=== PATIENT | male | born 1965 | race Caucasian/White ===

== ENCOUNTER 2017-06-15 09:35 | Observation (INO) | payer OTHER ==
[2017-06-15 09:42] VITALS: BMI 33.9
[2017-06-15] MEDS ORDERED: ASPIRIN 325 MG TABLET PO ONE (09:53)
--- NOTE | 2017-06-15 09:58 | PDOC ---
History of Present Illness - History of Present Illness Initial Comments: 06/15/17 10:05 "The patient is a 51 year old male with past medical history of hypertension, diabetes, CAD s/p triple bypass who presents to the ED with complaints of shortness of breath, malaise, and chills that began today. The patient states he has felt under the weather for the past few days, but today he noticed a generalized weakness with associated numbness and tingling throughout his body. He also noticed hes been experiencing shortness of breath this morning that is worse with exertion, but pt denies any leg swelling or orthopnea. Pt endorses chronic chest pain since his CABG and denies any changes in this. The patient additionally states he has been having chills for the past day but denies fevers. He denies any headache, nausea, vomiting, diarrhea, cough, SOB. PCP: Dr. Kit Juan Senior Care Manager: Dr. Renzo Montejo <Amrik Cobb - Last Filed: 06/15/17 13:50> <Ayesha Grimaldo - Last Filed: 06/15/17 13:54> - General Chief Complaint: Chest Pain Stated Complaint: DIZZINESS, NAUSEA Time Seen by Provider: 06/15/17 09:46 Past History - Past Medical History Cardiac Disorders: Yes (TRIPLE BYPASS) COPD: No Diabetes: Yes HTN: Yes - Surgical History Cardiac Surgery: Yes (TRIPLE BYPASS) - Suicide/Smoking/Psychosocial Hx Smoking History: Never smoked <Amrik Cobb - Last Filed: 06/15/17 13:50> <Ayesha Grimaldo - Last Filed: 06/15/17 13:54> - Past Medical History Allergies/Adverse Reactions: Allergies Allergy/AdvReac Type Severity Reaction Status Date / Time No Known Allergies Allergy Verified 06/15/17 09:48 Home Medications: Ambulatory Orders Aspirin [ASA -] 81 mg PO DAILY 06/15/17 Atorvastatin Ca [Lipitor] 20 mg PO HS 06/15/17 Carvedilol 12.5 mg PO BID 06/15/17 Clonidine HCl 0.1 mg PO BID 06/15/17 Gabapentin 100 mg PO DAILY 06/15/17 Glyburide 2.5 mg PO DAILY 06/15/17 Irbesartan [Avapro] 150 mg PO DAILY 06/15/17 Metformin HCl [Glucophage] 1,000 mg PO BID 06/15/17 Nifedipine ER [Procardia Xl -] 60 mg PO DAILY 06/15/17 Spironolactone 25 mg PO BID 06/15/17 Review of Systems - Review of Systems Comments:: 06/15/17 10:24 "GENERAL/CONSTITUTIONAL: Present: chills No weakness. HEAD, EYES, EARS, NOSE AND THROAT: No change in vision. No ear pain or discharge. No sore throat. CARDIOVASCULAR: Present: chest pain, shortness of breath RESPIRATORY: No cough, wheezing, or hemoptysis. GASTROINTESTINAL: No nausea, vomiting, diarrhea or constipation. GENITOURINARY: No dysuria, frequency, or change in urination. MUSCULOSKELETAL: No joint or muscle swelling or pain. No neck or back pain. SKIN: No rash NEUROLOGIC: No headache, vertigo, loss of consciousness, or change in strength/ sensation. ENDOCRINE: No increased thirst. No abnormal weight change. HEMATOLOGIC/LYMPHATIC: No anemia, easy bleeding, or history of blood clots. ALLERGIC/IMMUNOLOGIC: No hives or skin allergy. " <Amrik Cobb - Last Filed: 06/15/17 13:50> *Physical Exam - Vital Signs Last Vital Signs Temp Pulse Resp BP Pulse Ox 98.5 F 108 H 19 196/102 97 06/15/17 09:36 06/15/17 09:36 06/15/17 09:36 06/15/17 09:36 06/15/17 09:36 - Physical Exam Comments: 06/15/17 09:58 "GENERAL: Awake, alert, and fully oriented, in no acute distress. HEAD: No signs of trauma EYES: PERRLA, EOMI, sclera anicteric, conjunctiva clear ENT: Auricles normal inspection, hearing grossly normal, nares patent, oropharynx clear without exudates. Moist mucosa NECK: Nontender, no stepoffs, Normal ROM, supple, no lymphadenopathy, JVD, or masses LUNGS: Breath sounds equal, clear to auscultation bilaterally. No wheezes, and no crackles HEART: Regular rate and rhythm, normal S1 and S2, no murmurs, rubs or gallops ABDOMEN: Soft, nontender, normoactive bowel sounds. No guarding, no rebound. No masses EXTREMITIES: Normal range of motion, no edema. No clubbing or cyanosis. No cords, erythema, or tenderness NEUROLOGICAL: Cranial nerves II through XII intact. 5/5 strength and sensation in all extremities, Normal speech, normal gait, normal cerebellar function SKIN: Warm, Dry, normal turgor, no rashes or lesions noted. " <RezaAmrik - Last Filed: 06/15/17 13:50> - Vital Signs Last Vital Signs Temp Pulse Resp BP Pulse Ox 98.8 F 99 H 18 140/91 100 06/15/17 10:16 06/15/17 11:38 06/15/17 11:38 06/15/17 11:38 06/15/17 11:38 <ReAyesha - Last Filed: 06/15/17 13:54> Heart Score/ECG Review - History History: Slightly suspicious - Electrocardiogram EKG: Non specific repolarization disturbance - Age Age: 45-65 - Risk Factors Risk Factors Heart Score: Yes Hx Hypercholesterolemia, Yes Hx Hypertension, Yes Hx Diabetes Based on the list above the patient has:: >/=3 risk factors or Hx atherosclerotic disease - Troponin Troponin: </= normal limit - Score Heart Score - Total: 4 - ECG Impressions Comment:: 06/15/17 09:55 NSR, no STEs, <1mm ST depression and TWIs in I and aVL, intervals wnl, rate 106 <RezaAmrik - Last Filed: 06/15/17 13:50> ED Treatment Course - LABORATORY CBC & Chemistry Diagram: 06/15/17 09:50 06/15/17 09:50 - RADIOLOGY Radiology Studies Ordered: Category Date Time Status CHEST X-RAY PORTABLE* [RAD] Stat Radiology 06/15/17 09:53 Ordered <RezaAmrik - Last Filed: 06/15/17 13:50> - LABORATORY CBC & Chemistry Diagram: 06/15/17 09:50 06/15/17 09:50 - ADDITIONAL ORDERS Additional order review: Laboratory Results 06/15/17 06/15/17 06/15/17 09:50 09:50 09:50 PT with INR 11.80 INR 1.04 PTT (Actin FS) 33.4 Sodium 135 L Potassium 4.6 Chloride 102 Carbon Dioxide 22 Anion Gap 11 BUN 23 H Creatinine 1.4 H Creat Clearance w eGFR 53.86 Random Glucose 280 H Calcium 9.3 Total Bilirubin 0.5 AST 16 ALT 23 Alkaline Phosphatase 113 Creatine Kinase 182 Creatine Kinase Index 1.7 CK-MB (CK-2) 3.220 Troponin I < 0.02 B-Natriuretic Peptide 93.11 Total Protein 8.2 Albumin 4.4 06/15/17 09:50 RBC 4.80 MCV 84.4 MCHC 34.1 RDW 13.2 MPV 8.2 Neutrophils % 78.6 Lymphocytes % 11.5 Monocytes % 8.0 Eosinophils % 1.4 Basophils % 0.5 - Medications Given in the ED: ED Medications Discontinued Medications Generic Name Dose Route Start Last Admin Trade Name Freq PRN Reason Stop Dose Admin Aspirin 325 mg 06/15/17 09:53 06/15/17 10:05 Asa - PO 06/15/17 09:54 325 mg ONCE ONE Administration Carvedilol 12.5 mg 06/15/17 10:44 06/15/17 10:51 Coreg - PO 06/15/17 10:45 12.5 mg ONCE ONE Administration Nitroglycerin 0.3 mg 06/15/17 10:07 06/15/17 10:28 Nitrostat - SL 0.3 mg Q5M PRN Administration FOR CHEST PAIN <ReAyesha - Last Filed: 06/15/17 13:54> Medical Decision Making - Medical Decision Making 06/15/17 09:56 51 M with significant cardiac history presenting to ED with chills, malaise, CP and SOB. Vitals notable for tachycardia and hypertension. Possible new onset CHF , though pt without obvious clinical signs of volume overload. Also consider acute [place] given ST depression in I and aVL. - Labs, trop, BNP, coags - CXR - Aspirin - Cards consult - Home dose carvedilol administered (did not take this AM) 06/15/17 11:45 first trop negative. BNP wnl CXR without pulmonary edema Pt reassessed - still continuing to have some chest discomfort Call placed to Dr. Montejo, awaiting callback. 06/15/17 13:50 Pt seen and evaluated by Dr. Mae, who agrees with plan to admit for serial troponins. Does not see any indication for transfer for interventional cards at this time. Pt admitted to Dr. Gates, tele obs. <Amrik Cobb - Last Filed: 06/15/17 13:50> - Medical Decision Making 06/15/17 11:51 Phone call placed to Dr. Montejo at his office. Awaiting call back 06/15/17 13:24 Phone call placed to Dr. Gates, admitting physician for Dr. Juan. Awaiting call back. 06/15/17 13:46 Phone call returned by Dr. Gates, case was discussed <Ayesha Grimaldo - Last Filed: 06/15/17 13:54> *DC/Admit/Observation/Transfer - Discharge Dispostion Admit: Yes - Attestations Physician Attestion: 06/15/17 13:53 I, Dr. mArik Cobb MD, attest that this document has been prepared under my direction and personally reviewed by me in its entirety. I further attest, that it accurately reflects all work, treatment, procedures and medical decision -making performed by me. <Amrik Cobb - Last Filed: 06/15/17 13:50> - Attestations Scribe Attestion: 06/15/17 12:49 Documentation prepared by Ayesha Grimaldo, acting as medical assisting instructor for Amrik Cobb MD. <Ayesha Grimaldo - Last Filed: 06/15/17 13:54> Diagnosis at time of Disposition: Chest pain - Referrals Referrals: Kit Juan [Primary Care Provider] -
[2017-06-15] MEDS ORDERED: ASPIRIN 325 MG TABLET ONE (10:04)
[2017-06-15] MEDS: NITROGLYCERIN SUBLINGUAL 1/200 0.3 MG BTL SL PRN ×3 (10:13→10:28)
[2017-06-15 10:25] LABS: BASO % 0.5 % (0-2.0); EOS % 1.4 % (0-4.5); HEMATOCRIT 40.5 % (35.4-49); HEMOGLOBIN 13.8 GM/dL (11.7-16.9); LYMPH % 11.5 % (8-40); MCH 28.8 pg (25.7-33.7); MCHC 34.1 g/dl (32.0-35.9); MEAN CELL VOLUME 84.4 fl (80-96); MEAN PLT VOLUME 8.2 fl (7.5-11.1); NEUT % 78.6 % (42.8-82.8); PLATELET COUNT 333 K/MM3 (134-434); RDW 13.2 % (11.9-15.9); WHITE BLOOD COUNT 11.6 K/mm3 (4.0-10.0)
[2017-06-15] MEDS ORDERED: CARVEDILOL 12.5 MG TABLET (FP) PO ONE (10:44)
[2017-06-15 10:45] LABS: ALBUMIN 4.4 g/dl (3.4-5.0); ANION GAP 11 (8-16); BLOOD UREA NITROGEN 23 mg/dL (7-18); CALCIUM 9.3 mg/dL (8.5-10.1); CHLORIDE 102 mmol/L (98-107); CO2 22 mmol/L (21-32); CREATININE 1.4 mg/dL (0.7-1.3); GLUCOSE,RANDOM 280 mg/dL (74-106); POTASSIUM 4.6 mmol/L (3.5-5.1); SGOT/AST 16 U/L (15-37); SGPT/ALT 23 U/L (12-78); SODIUM 135 mmol/L (136-145)
[2017-06-15] MEDS ORDERED: CARVEDILOL 12.5 MG TABLET (FP) ONE (10:46)
[2017-06-15 10:47] LABS: ALK PHOS 113 U/L (45-117); BILIRUBIN,TOTAL 0.5 mg/dL (0.2-1.0); TOT PROT 8.2 g/dl (6.4-8.2)
[2017-06-15 10:51] LABS: N-TERMINAL BNP 93.11 pg/ml (5-125)
[2017-06-15 11:07] LABS: INR 1.04 (0.82-1.09); PROTHROMBIN TIME (PATIENT) 11.8 SEC (9.98-11.88)
[2017-06-15 11:09] LABS: ACTIVATED PTT 33.4 SECONDS (26.9-34.4)
--- NOTE | 2017-06-15 15:04 | CON.CARD ---
Consult Consult Specialty:: Cardiology Referred by:: Amrik Cobb Reason for Consultation:: Chest pain - History of Present Illness Chief Complaint: Sob History of Present Illness: 51 year old male with a pmhx of htn, dm, CAD s/p CABG three years ago at [facility] followed by Dr. Montejo who presents with sob, malaise, and chills. Patient has been feeling under the weather last few days. Has been generally weak with some body aches. This morning was with his and he started to feel sob and dizzy so came to the ER. No pnd, orthopnea, or edema. No acute chest pain but chornic chest pain in left axilla reproducible with palpation. No fevers but some chills Hypertensive on presentation EKG: sinus tachy at 106bpm, abnormal T waves in I and aVL\ 1 set CE's negative Cr 1.4 - History Source History Provided By: Patient, Medical Record - Past Medical History Cardio/Vascular: Yes: CAD, HTN - Smoking History Smoking history: Never smoked Home Medications - Allergies Allergies/Adverse Reactions: Allergies Allergy/AdvReac Type Severity Reaction Status Date / Time No Known Allergies Allergy Verified 06/15/17 09:48 - Home Medications Home Medications: Ambulatory Orders Aspirin [ASA -] 81 mg PO DAILY 06/15/17 Atorvastatin Ca [Lipitor] 20 mg PO HS 06/15/17 Carvedilol 12.5 mg PO BID 06/15/17 Clonidine HCl 0.1 mg PO BID 06/15/17 Gabapentin 100 mg PO DAILY 06/15/17 Glyburide 2.5 mg PO DAILY 06/15/17 Irbesartan [Avapro] 150 mg PO DAILY 06/15/17 Metformin HCl [Glucophage] 1,000 mg PO BID 06/15/17 Nifedipine ER [Procardia Xl -] 60 mg PO DAILY 06/15/17 Spironolactone 25 mg PO BID 06/15/17 Vital Signs: Vital Signs Temperature 98.3 F 06/15/17 14:51 Pulse Rate 86 06/15/17 14:17 Respiratory Rate 18 06/15/17 14:17 Blood Pressure 140/85 06/15/17 14:17 O2 Sat by Pulse Oximetry (%) 100 06/15/17 14:17 Constitutional: Yes: No Distress Neck: Yes: Supple Respiratory: Yes: CTA Bilaterally Gastrointestinal: Yes: Normal Bowel Sounds, Soft Cardiovascular: Yes: Regular Rate and Rhythm JVD: No Carotid Bruit: No PMI: Non-Displaced Heart Sounds: Yes: S1, S2 Murmur: No: Systolic Murmur Edema: No - Other Data Labs, Other Data: CBC, BMP 06/15/17 09:50 06/15/17 09:50 INR, PTT INR 1.04 (0.82-1.09) 06/15/17 09:50 Troponin, BNP 06/15/17 09:50 Troponin I < 0.02 B-Natriuretic Peptide 93.11 Troponin, BNP 06/15/17 09:50 Troponin I < 0.02 B-Natriuretic Peptide 93.11 Imaging - Results Chest X-ray: Report Reviewed EKG: Image Reviewed Assessment/Plan 51 year old male with a pmhx of htn, dm, CAD s/p CABG three years ago at [facility] followed by Dr. Montejo who presents with sob, malaise, and chills. Patient has been feeling under the weather last few days. Has been generally weak with some body aches. This morning was with his and he started to feel sob and dizzy so came to the ER. No pnd, orthopnea, or edema. No acute chest pain but chornic chest pain in left axilla reproducible with palpation. No fevers but some chills Hypertensive on presentation EKG: sinus tachy at 106bpm, abnormal T waves in I and aVL 1 set CE's negative Cr 1.4 1) CAD -Patient with atypical complaints. Chest pain is atypical, chronic, and reproducible -Monitor 24 hrs on tele Attempt to get old ekg and recent echo done few weeks ago from Dr. Montejo's office -Restart aspirin/statin/beta rina and rest of bp meds and will adjust as needed for bp control -Trend CE's Gentle IV hydration
--- NOTE | 2017-06-15 16:49 | EKG ---
Test Reason : Blood Pressure : / mmHG Vent. Rate : 106 BPM Atrial Rate : 106 BPM P-R Int : 154 ms QRS Dur : 076 ms QT Int : 334 ms P-R-T Axes : 037 -06 104 degrees QTc Int : 443 ms SINUS TACHYCARDIA ANTERIOR INFARCT , AGE UNDETERMINED ABNORMAL ECG NO PREVIOUS ECGS AVAILABLE Confirmed by MD Benny, Simon ([id number]) on 06/15/2017 4:48:27 PM Referred By: Confirmed By:Simon Zapata MD
[2017-06-15] MEDS: SPIRONOLACTONE 25 MG TABLET (FP) PO SCH (21:52)
[2017-06-15] MEDS: CARVEDILOL 12.5 MG TABLET (FP) PO SCH (21:53)
[2017-06-15] MEDS: cloNIDine HCL 0.1 MG TABLET PO SCH (21:53)
[2017-06-15] MEDS ORDERED: ATORVASTATIN CA 20 MG TABLET (FP) PO SCH (22:00)
[2017-06-16 06:37] LABS: COCAINE, UR NEGATIVE ng/ml (CUTOFF=300); METHADONE, UR NEGATIVE ng/ml (CUTOFF=300); OPIATES, URI NEGATIVE ng/ml (CUTOFF=300); PHENCYCLIDINE,URINE NEGATIVE ng/ml (CUTOFF=25); URINE AMPHETAMINES NEGATIVE ng/ml (CUTOFF=500); URINE BARBITURATES NEGATIVE ng/ml (CUTOFF=200); URINE BENZODIAZEPINES NEGATIVE ng/ml (CUTOFF=200)
[2017-06-16] MEDS ORDERED: metFORMIN HCL 500 MG TABLET (FP) PO SCH (07:00)
[2017-06-16] MEDS ORDERED: glyBURIDE 2.5 MG TABLET (FP) PO SCH (07:00)
[2017-06-16 07:15] LABS: BASO % 0.5 % (0-2.0); EOS % 2.1 % (0-4.5); HEMOGLOBIN 12.4 GM/dL (11.7-16.9); LYMPH % 22.1 % (8-40); MCH 29.3 pg (25.7-33.7); MCHC 34.6 g/dl (32.0-35.9); MEAN CELL VOLUME 84.8 fl (80-96); MONO % 10.1 % (3.8-10.2); NEUT % 65.2 % (42.8-82.8); PLATELET COUNT 276 K/MM3 (134-434); RBC 4.25 M/mm3 (4.00-5.60); RDW 13.1 % (11.9-15.9); WHITE BLOOD COUNT 10.7 K/mm3 (4.0-10.0)
[2017-06-16 07:48] LABS: ALBUMIN 3.5 g/dl (3.4-5.0); ANION GAP 9 (8-16); BLOOD UREA NITROGEN 26 mg/dL (7-18); CALCIUM 7.9 mg/dL (8.5-10.1); CHLORIDE 102 mmol/L (98-107); CO2 24 mmol/L (21-32); GLUCOSE,RANDOM 172 mg/dL (74-106); POTASSIUM 4.4 mmol/L (3.5-5.1); SODIUM 135 mmol/L (136-145)
[2017-06-16 07:50] LABS: CHOLESTEROL 143 mg/dL (50-200); LDL CHOLESTEROL (ONLY SJRH) 87 mg/dL (5-100); TRIGLYCERIDES 239 mg/dL (35-160)
[2017-06-16 07:51] LABS: HDL CHOLESTEROL 32 mg/dL (40-60)
[2017-06-16 07:54] LABS: ALK PHOS 88 U/L (45-117); BILIRUBIN,TOTAL 0.4 mg/dL (0.2-1.0); CREATININE 1.4 mg/dL (0.7-1.3); SGOT/AST 11 U/L (15-37); SGPT/ALT 21 U/L (12-78); TOT PROT 6.8 g/dl (6.4-8.2)
[2017-06-16 08:06] VITALS: BP 158/87; PULSE 79; TEMP 98
[2017-06-16] MEDS: cloNIDine HCL 0.1 MG TABLET PO SCH (09:35)
[2017-06-16] MEDS: SPIRONOLACTONE 25 MG TABLET (FP) PO SCH (09:36)
[2017-06-16] MEDS: CARVEDILOL 12.5 MG TABLET (FP) PO SCH (09:36)
[2017-06-16] MEDS ORDERED: GABAPENTIN 100 MG CAPSULE (FP) PO SCH (10:00)
[2017-06-16] MEDS ORDERED: LOSARTAN POTASSIUM 50 MG TABLET (FP) PO SCH (10:00)
[2017-06-16] MEDS ORDERED: ASPIRIN 81 MG CHEWABLE TABLETS PO SCH (10:00)
[2017-06-16] MEDS ORDERED: NIFEdipine E.R 60 MG TABLET (UD) PO SCH (10:00)
--- NOTE | 2017-06-16 11:44 | EKG ---
Test Reason : Blood Pressure : / mmHG Vent. Rate : 073 BPM Atrial Rate : 073 BPM P-R Int : 170 ms QRS Dur : 078 ms QT Int : 404 ms P-R-T Axes : 036 028 113 degrees QTc Int : 445 ms NORMAL SINUS RHYTHM ABNORMAL QRS-T ANGLE, CONSIDER PRIMARY T WAVE ABNORMALITY ABNORMAL ECG WHEN COMPARED WITH ECG OF 15-JUN-2017 09:44, NO SIGNIFICANT CHANGE WAS FOUND Confirmed by CHASTITY DWYER, SVITLANA ([id number]) on 06/16/2017 11:43:42 AM Referred By: DANE HAUSER DR Confirmed By:SVITLANA HAYWOOD MD
--- NOTE | 2017-06-16 12:50 | HP ---
Admitting History and Physical - Admission Chief Complaint: chest pain / SOB History of Present Illness: "The patient is a 51 year old male with past medical history of hypertension, diabetes, CAD s/p triple bypass who presents to the ED with complaints of shortness of breath, malaise, and chills that began today. The patient states he has felt under the weather for the past few days, but today he noticed a generalized weakness with associated numbness and tingling throughout his body. He also noticed hes been experiencing shortness of breath this morning that is worse with exertion, but pt denies any leg swelling or orthopnea. Pt endorses chronic chest pain since his CABG and denies any changes in this. The patient additionally states he has been having chills for the past day but denies fevers. He denies any headache, nausea, vomiting, diarrhea, cough, SOB. Patient reports chest pain localized mid left parasternal /reproducible with pressure to site / non radiating / no associated symptoms reports pain "got worse " when he started coughing. It "has never gone away -- he has been told and is aware this is related to surgical procedure - CABG -- probably sternotomy wires. PCP: Dr. Kit Juan Welding Process Specialist: Dr. Stevenson History Source: Patient, Medical Record Limitations to Obtaining History: No Limitations - Past Medical History Cardiovascular: Yes: CAD, HTN, Other (CABG) - Past Surgical History Past Surgical History: Yes: CABG (3 yrs ago @ [facility]) - Smoking History Smoking history: Never smoked - Alcohol/Substance Use Hx Alcohol Use: Yes History of Substance Use: reports: None - Social History Usual Living Arrangement: Yes: With Spouse History of Recent Travel: No Home Medications - Allergies Allergies/Adverse Reactions: Allergies Allergy/AdvReac Type Severity Reaction Status Date / Time No Known Allergies Allergy Verified 06/15/17 09:48 - Home Medications Home Medications: Ambulatory Orders Aspirin [ASA -] 81 mg PO DAILY 06/15/17 Atorvastatin Ca [Lipitor] 20 mg PO HS 06/15/17 Carvedilol 12.5 mg PO BID 06/15/17 Clonidine HCl 0.1 mg PO BID 06/15/17 Gabapentin 100 mg PO DAILY 06/15/17 Glyburide 2.5 mg PO DAILY 06/15/17 Irbesartan [Avapro] 150 mg PO DAILY 06/15/17 Metformin HCl [Glucophage] 1,000 mg PO BID 06/15/17 Nifedipine ER [Procardia Xl -] 60 mg PO DAILY 06/15/17 Spironolactone 25 mg PO BID 06/15/17 Review of Systems - Review of Systems Constitutional: reports: No Symptoms. denies: Fever, Lethargy, Night Sweats Eyes: reports: No Symptoms HENT: reports: No Symptoms Neck: reports: No Symptoms Cardiovascular: reports: Chest Pain (localized / constant / reproducible), Shortness of Breath (associated with increased activity). denies: Edema, Palpitations Respiratory: reports: Cough (dry persistent). denies: Hemoptysis, Orthopnea, Wheezing Gastrointestinal: reports: No Symptoms Genitourinary: reports: No Symptoms Musculoskeletal: reports: No Symptoms Integumentary: reports: No Symptoms Endocrine: reports: No Symptoms Hematology/Lymphatic: reports: No Symptoms Psychiatric: reports: No Symptoms Physical Examination Vital Signs: Vital Signs Temperature 98 F 06/16/17 08:05 Pulse Rate 79 06/16/17 08:05 Respiratory Rate 16 06/16/17 08:05 Blood Pressure 158/87 06/16/17 08:05 O2 Sat by Pulse Oximetry (%) 100 06/16/17 08:00 Constitutional: Yes: Well Nourished, No Distress, Calm, Obese Eyes: Yes: WNL HENT: Yes: WNL Neck: Yes: WNL Cardiovascular: Yes: Regular Rate and Rhythm Respiratory: Yes: Regular, CTA Bilaterally. No: Rales, Rhonchi, Wheezes Gastrointestinal: Yes: Normal Bowel Sounds, Soft, Abdomen, Obese ...Rectal Exam: Yes: Deferred Renal/: Yes: WNL Breast(s): Yes: WNL Musculoskeletal: Yes: WNL Extremities: Yes: WNL Edema: No Peripheral Pulses WNL: Yes Integumentary: Yes: WNL Neurological: Yes: Alert, Oriented ...Motor Strength: WNL Psychiatric: Yes: Alert, Oriented Labs: CBC, BMP 06/16/17 06:16 06/16/17 06:16 Problem List - Problems (1) Atypical angina Code(s): I20.8 - OTHER FORMS OF ANGINA PECTORIS (2) HTN (hypertension), malignant Code(s): I10 - ESSENTIAL (PRIMARY) HYPERTENSION (3) Diabetes mellitus Code(s): E11.9 - TYPE 2 DIABETES MELLITUS WITHOUT COMPLICATIONS (4) CAD of autologous artery bypass graft without angina Code(s): I25.810 - ATHEROSCLEROSIS OF CABG W/O ANGINA PECTORIS
--- NOTE | 2017-06-16 13:14 | PN ---
Progress Note, Physician Chief Complaint: Dizziness and chest discomfort History of Present Illness: The patient is a 51-year-old man, we have a history of coronary artery disease, status post CABG in 2015, hypertension, hyperlipidemia, who presenting with URI symptoms, myalgias, and atypical chest pains. The patient has chronic chest pains (musculoskeletal) since his CABG. He is currently comfortable and symptom free. - Current Medication List Current Medications: Active Medications Aspirin (Asa -) 81 mg PO DAILY [facility] Last Admin: 06/16/17 09:36 Dose: 81 mg Atorvastatin Calcium (Lipitor -) 20 mg PO HS [facility] Last Admin: 06/15/17 21:53 Dose: 20 mg Carvedilol (Coreg -) 12.5 mg PO BID [facility] Last Admin: 06/16/17 09:36 Dose: 12.5 mg Clonidine (Catapres -) 0.1 mg PO BID [facility] Last Admin: 06/16/17 09:35 Dose: 0.1 mg Gabapentin (Neurontin -) 100 mg PO DAILY [facility] Last Admin: 06/16/17 09:35 Dose: 100 mg Glyburide (Diabeta -) 2.5 mg PO 0700 [facility] Last Admin: 06/16/17 06:12 Dose: 2.5 mg Losartan Potassium (Cozaar -) 50 mg PO DAILY [facility] Last Admin: 06/16/17 09:35 Dose: 50 mg Metformin HCl (Glucophage -) 1,000 mg PO BID@0700,1630 [facility] Last Admin: 06/16/17 06:12 Dose: 1,000 mg Nifedipine (Procardia Xl -) 60 mg PO DAILY [facility] Last Admin: 06/16/17 09:35 Dose: 60 mg Spironolactone (Aldactone -) 25 mg PO BID [facility] Last Admin: 06/16/17 09:36 Dose: 25 mg - Objective Vital Signs: Vital Signs Temperature 98 F 06/16/17 08:05 Pulse Rate 79 06/16/17 08:05 Respiratory Rate 16 06/16/17 08:05 Blood Pressure 158/87 06/16/17 08:05 O2 Sat by Pulse Oximetry (%) 100 06/16/17 08:00 Constitutional: Yes: No Distress, Calm, Obese Eyes: Yes: WNL, Conjunctiva Clear, EOM Intact HENT: Yes: Atraumatic, Normocephalic Neck: Yes: WNL, Supple, Trachea Midline Cardiovascular: Yes: WNL, Regular Rate and Rhythm, S1, S2 Respiratory: Yes: WNL, Regular, CTA Bilaterally Gastrointestinal: Yes: WNL, Normal Bowel Sounds, Soft ...Rectal Exam: Yes: Deferred Genitourinary: Yes: WNL Musculoskeletal: Yes: Muscle Pain Extremities: Yes: WNL Edema: No Peripheral Pulses: Left Radial: 2+, Right Radial: 2+, Left Doralis Pedis: 2+, Right Dorsalis Pedis: 2+, Left Femoral: 2+, Right Femoral: 2+ Integumentary: Yes: WNL Neurological: Yes: WNL, Alert, Oriented Labs: CBC, BMP 06/16/17 06:16 06/16/17 06:16 INR, PTT INR 1.04 (0.82-1.09) 06/15/17 09:50 Assessment/Plan The patient is stable from the cardiac standpoint. There is no evidence of ischemia nor acute coronary syndrome. Musculoskeletal chest discomfort in the setting of coughing. Symptoms are chronic. Next There is no need for further cardiac workup at this point. The patient is in sinus rhythm. No important events noted on telemetry. Please continue current regimen. May stop telemetry. Please do not hesitate to call us PRN.
--- NOTE | 2017-06-16 13:19 | PN ---
Progress Note (short form) - Note Progress Note: Patietn seen and examined in room reports feeling better however chest pain unchanged discussed findings with patient he reports "only thing bothering him is the cough " Vital Signs Period Temp Pulse Resp BP Sys/Kumar Pulse Ox Last 24 Hr 98 F-99.1 F 77-106 14-18 140-178/71-98 97-100 neck supple sternotomy scar / chest pain reproducible L parasternal border heart S1/S2 Lungs clear bilat abd soft obese Ext osmani edema CBCD WBC 10.7 K/mm3 (4.0-10.0) H 06/16/17 06:16 RBC 4.25 M/mm3 (4.00-5.60) 06/16/17 06:16 Hgb 12.4 GM/dL (11.7-16.9) D 06/16/17 06:16 Hct 36.0 % (35.4-49) 06/16/17 06:16 MCV 84.8 fl (80-96) 06/16/17 06:16 MCHC 34.6 g/dl (32.0-35.9) 06/16/17 06:16 RDW 13.1 % (11.9-15.9) 06/16/17 06:16 Plt Count 276 K/MM3 (134-434) 06/16/17 06:16 MPV 8.0 fl (7.5-11.1) 06/16/17 06:16 CMP Sodium 135 mmol/L (136-145) L 06/16/17 06:16 Potassium 4.4 mmol/L (3.5-5.1) 06/16/17 06:16 Chloride 102 mmol/L (98-107) 06/16/17 06:16 Carbon Dioxide 24 mmol/L (21-32) 06/16/17 06:16 Anion Gap 9 (8-16) 06/16/17 06:16 BUN 26 mg/dL (7-18) H 06/16/17 06:16 Creatinine 1.4 mg/dL (0.7-1.3) H 06/16/17 06:16 Creat Clearance w eGFR 53.86 (>60) 06/16/17 06:16 Random Glucose 172 mg/dL (74-106) H D 06/16/17 06:16 Calcium 7.9 mg/dL (8.5-10.1) L 06/16/17 06:16 Total Bilirubin 0.4 mg/dL (0.2-1.0) 06/16/17 06:16 AST 11 U/L (15-37) L D 06/16/17 06:16 ALT 21 U/L (12-78) 06/16/17 06:16 Alkaline Phosphatase 88 U/L (45-117) D 06/16/17 06:16 Total Protein 6.8 g/dl (6.4-8.2) 06/16/17 06:16 Albumin 3.5 g/dl (3.4-5.0) D 06/16/17 06:16 CARDIAC ENZYMES Creatine Kinase 114 IU/L (39-308) 06/16/17 06:16 Troponin I < 0.02 ng/ml (0.00-0.05) 06/16/17 06:16 TROPONIN I < 0.02 X 3 Active Medications Aspirin (Asa -) 81 mg PO DAILY [facility] Last Admin: 06/16/17 09:36 Dose: 81 mg Atorvastatin Calcium (Lipitor -) 20 mg PO HS [facility] Last Admin: 06/15/17 21:53 Dose: 20 mg Carvedilol (Coreg -) 12.5 mg PO BID [facility] Last Admin: 06/16/17 09:36 Dose: 12.5 mg Clonidine (Catapres -) 0.1 mg PO BID [facility] Last Admin: 06/16/17 09:35 Dose: 0.1 mg Gabapentin (Neurontin -) 100 mg PO DAILY [facility] Last Admin: 06/16/17 09:35 Dose: 100 mg Glyburide (Diabeta -) 2.5 mg PO 0700 [facility] Last Admin: 06/16/17 06:12 Dose: 2.5 mg Losartan Potassium (Cozaar -) 50 mg PO DAILY [facility] Last Admin: 06/16/17 09:35 Dose: 50 mg Metformin HCl (Glucophage -) 1,000 mg PO BID@0700,1630 [facility] Last Admin: 06/16/17 06:12 Dose: 1,000 mg Nifedipine (Procardia Xl -) 60 mg PO DAILY [facility] Last Admin: 06/16/17 09:35 Dose: 60 mg Spironolactone (Aldactone -) 25 mg PO BID [facility] Last Admin: 04/18/18 09:36 Dose: 25 mg atypical chest pain localized at surgical site reproducible no evidence of cardiac event Plans D/C home will follow up with Dr Stevenson and at office this week Instructed to continue all meds / low salt diet / recommend weight loss Problem List - Problems (1) Atypical angina Code(s): I20.8 - OTHER FORMS OF ANGINA PECTORIS (2) HTN (hypertension), malignant Code(s): I10 - ESSENTIAL (PRIMARY) HYPERTENSION (3) Diabetes mellitus Code(s): E11.9 - TYPE 2 DIABETES MELLITUS WITHOUT COMPLICATIONS (4) CAD of autologous artery bypass graft without angina Code(s): I25.810 - ATHEROSCLEROSIS OF CABG W/O ANGINA PECTORIS
--- NOTE | 2017-06-16 13:23 | DS ---
Physical Examination Vital Signs: Vital Signs Temperature 98 F 06/16/17 08:05 Pulse Rate 79 06/16/17 08:05 Respiratory Rate 16 06/16/17 08:05 Blood Pressure 158/87 06/16/17 08:05 O2 Sat by Pulse Oximetry (%) 100 06/16/17 08:00 Findings/Remarks: "The patient is a 51 year old male with past medical history of hypertension, diabetes, CAD s/p triple bypass who presents to the ED with complaints of shortness of breath, malaise, and chills that began today. The patient states he has felt under the weather for the past few days, but today he noticed a generalized weakness with associated numbness and tingling throughout his body. He also noticed hes been experiencing shortness of breath this morning that is worse with exertion, but pt denies any leg swelling or orthopnea. Pt endorses chronic chest pain since his CABG and denies any changes in this. The patient additionally states he has been having chills for the past day but denies fevers. He denies any headache, nausea, vomiting, diarrhea, cough, SOB. Patient reports chest pain localized mid left parasternal /reproducible with pressure to site / non radiating / no associated symptoms reports pain "got worse " when he started coughing. It "has never gone away -- he has been told and is aware this is related to surgical procedure - CABG -- probably sternotomy wires. No EKG changes / telemetry no arrythmia / sinus rhythm / TNI X3 <0.02 / Cardiac eval during hospital stay atypical chest pain localized at surgical site reproducible no evidence of cardiac event Plans D/C home will follow up with Dr Stevenson and at office this week Instructed to continue all meds / low salt diet / recommend weight loss Constitutional: Yes: Well Nourished, No Distress, Calm, Obese Eyes: Yes: Conjunctiva Clear, EOM Intact HENT: Yes: WNL, Atraumatic, Normocephalic Neck: Yes: WNL, Supple, Trachea Midline Cardiovascular: Yes: WNL, Regular Rate and Rhythm Respiratory: Yes: WNL, Regular, CTA Bilaterally Gastrointestinal: Yes: WNL, Normal Bowel Sounds, Soft, Abdomen, Obese ...Rectal Exam: Yes: WNL Renal/: Yes: WNL Breast(s): Yes: WNL Musculoskeletal: Yes: WNL Extremities: Yes: WNL Edema: No Peripheral Pulses WNL: Yes Integumentary: Yes: WNL Neurological: Yes: WNL ...Motor Strength: WNL Psychiatric: Yes: WNL, Alert, Oriented Labs: CBC, BMP 06/16/17 06:16 06/16/17 06:16 Discharge Summary Reason For Visit: CHEST PAIN Current Active Problems Atypical angina (Acute) CAD of autologous artery bypass graft without angina (Acute) Chest pain (Acute) Diabetes mellitus (Acute) HTN (hypertension), malignant (Acute) Condition: Stable - Instructions Referrals: Kit Juan [Primary Care Provider] - Disposition: HOME - Home Medications Comprehensive Discharge Medication List: Ambulatory Orders Aspirin [ASA -] 81 mg PO DAILY 06/15/17 Atorvastatin Ca [Lipitor] 20 mg PO HS 06/15/17 Carvedilol 12.5 mg PO BID 06/15/17 Clonidine HCl 0.1 mg PO BID 06/15/17 Gabapentin 100 mg PO DAILY 06/15/17 Glyburide 2.5 mg PO DAILY 06/15/17 Irbesartan [Avapro] 150 mg PO DAILY 06/15/17 Metformin HCl [Glucophage] 1,000 mg PO BID 06/15/17 Nifedipine ER [Procardia XL -] 60 mg PO DAILY 06/15/17 Spironolactone 25 mg PO BID 06/15/17 Nitroglycerin Sublingual [Nitrostat -] 0.3 mg SL Q5M PRN btl 06/16/17
== END 2017-06-16 15:44 | disposition home or self-care (01) ==
LOC: JER 09:35 → JERBED 13:50 → J4W 15:34
PROVIDERS: ADMIT Family Medicine; ATTEND Family Medicine
DX: R07.89 Other chest pain (principal); I10 Essential (primary) hypertension; I25.798 Atherosclerosis of other coronary artery bypass graft(s) with other forms of angina pectoris; E11.9 Type 2 diabetes mellitus without complications; Z95.1 Presence of aortocoronary bypass graft; Z79.82 Long term (current) use of aspirin; Z79.84 Long term (current) use of oral hypoglycemic drugs; R00.0 Tachycardia, unspecified
CPT/HCPCS: 36415; 71045-TC-FY; 71046-TC-FY; 80053; 80061; 80307; 82550; 82553; 82962; 83721; 83880; 84484; 85025; 85610; 85730; 93005; 93010; 99285-25; G0378; J0735

== ENCOUNTER 2017-12-30 13:27 | Emergency (ER) | payer OTHER ==
--- NOTE | 2017-12-30 13:38 | PDOC ---
History of Present Illness - General Stated Complaint: ANXIETY - History of Present Illness Initial Comments: The patient is a 52M w/ a history of HTN, T2DM, CAD s/p CABG x3 who presents for evaluation of anxiety s/p being evicted from his house today with his and kids. The patient reports feeling shaky with some mild increased substernal chest pain that is reproducible and not new for him. He denies SI or HI. He reports that he will be able to move in with his parents for a short amount of time. PCP: Dr. Juan Cardiology: Dr. Ham 12/30/17 13:36 Past History - Past Medical History Allergies/Adverse Reactions: Allergies Allergy/AdvReac Type Severity Reaction Status Date / Time No Known Allergies Allergy Verified 12/30/17 13:50 Home Medications: Ambulatory Orders Aspirin [ASA -] 81 mg PO DAILY 06/15/17 Atorvastatin Ca [Lipitor] 20 mg PO HS 06/15/17 Carvedilol 12.5 mg PO BID 06/15/17 Clonidine HCl 0.1 mg PO BID 06/15/17 Gabapentin 100 mg PO DAILY 06/15/17 Glyburide 2.5 mg PO DAILY 06/15/17 Irbesartan [Avapro] 150 mg PO DAILY 06/15/17 Metformin HCl [Glucophage] 1,000 mg PO BID 06/15/17 Nifedipine ER [Procardia XL -] 60 mg PO DAILY 06/15/17 Spironolactone 25 mg PO BID 06/15/17 Nitroglycerin Sublingual [Nitrostat -] 0.3 mg SL Q5M PRN btl 06/16/17 Cardiac Disorders: Yes (TRIPLE BYPASS) COPD: No Diabetes: Yes HTN: Yes Hypercholesterolemia: Yes - Surgical History Cardiac Surgery: Yes (TRIPLE BYPASS) - Suicide/Smoking/Psychosocial Hx Smoking History: Never smoked Hx Alcohol Use: Yes Review of Systems - Review of Systems Able to Perform ROS?: Yes Comments:: GENERAL/CONSTITUTIONAL: No fever or chills. No weakness HEAD, EYES, EARS, NOSE AND THROAT: No change in vision. No ear pain or discharge. No sore throat CARDIOVASCULAR: No shortness of breath RESPIRATORY: No cough, wheezing, or hemoptysis GASTROINTESTINAL: No nausea, vomiting, diarrhea or constipation GENITOURINARY: No dysuria, frequency, or change in urination MUSCULOSKELETAL: No joint or muscle swelling or pain. No neck or back pain SKIN: No rash NEUROLOGIC: No headache, vertigo, loss of consciousness, or change in strength/ sensation ENDOCRINE: No increased thirst. No abnormal weight change HEMATOLOGIC/LYMPHATIC: No anemia, easy bleeding, or history of blood clots ALLERGIC/IMMUNOLOGIC: No hives or skin allergy 12/30/17 14:16 Is the patient limited Tajik proficient: No *Physical Exam - Vital Signs Vital Signs Temp Pulse Resp BP Pulse Ox 98.3 F 100 H 18 163/97 97 12/30/17 13:34 12/30/17 13:34 12/30/17 13:34 12/30/17 13:34 12/30/17 13:34 12/30/17 14:17 - Physical Exam Comments: GENERAL: Awake, alert, and fully oriented, in no acute distress HEAD: No signs of trauma, normocephalic, atraumatic EYES: PERRLA, EOMI, sclera anicteric, conjunctiva clear ENT: Hearing grossly normal, nares patent, oropharynx clear without exudates. Moist mucosa LUNGS: No distress, speaks full sentences, clear to auscultation bilaterally HEART: Tachycardia with regular rhythm, normal S1 and S2, no murmurs, rubs or gallops, peripheral pulses normal and equal bilaterally ABDOMEN: Soft, nontender, normoactive bowel sounds. No guarding, no rebound. No masses EXTREMITIES : Normal inspection, Normal range of motion, no edema. No clubbing or cyanosis NEUROLOGICAL: Cranial nerves II through XII grossly intact. Normal speech, normal gait, no focal sensorimotor deficits SKIN: Warm, Dry, normal turgor, no rashes or lesions noted 12/30/17 14:17 ED Treatment Course - LABORATORY CBC & Chemistry Diagram: 12/30/17 14:10 12/30/17 14:10 Medical Decision Making - Medical Decision Making The patient is a 52M with a history of HTN, CAD s/p CABG x3, who presents for evaluation of anxiety and exacerbation of chronic chest pain s/p eviction today CMP, CBC, Cardiac profile Xanax 0.25 PO once for anxiety Patient w/o current SI or HI Patient plans to stay w/ parents for next month 12/30/17 14:18 Laboratory Tests 12/30/17 14:10 WBC 12.9 H Hgb 14.6 mild leukocytosis, near baseline, afebrile No anemia 12/30/17 15:07 CMP Sodium 136 mmol/L (136-145) 12/30/17 14:10 Potassium 4.4 mmol/L (3.5-5.1) 12/30/17 14:10 Chloride 102 mmol/L (98-107) 12/30/17 14:10 Carbon Dioxide 23 mmol/L (21-32) 12/30/17 14:10 Anion Gap 11 MMOL/L (8-16) 12/30/17 14:10 BUN 22 mg/dL (7-18) H 12/30/17 14:10 Creatinine 1.5 mg/dL (0.55-1.3) H 12/30/17 14:10 Creat Clearance w eGFR 49.54 (>60) 12/30/17 14:10 Random Glucose 193 mg/dL (74-106) H 12/30/17 14:10 Calcium 9.0 mg/dL (8.5-10.1) 12/30/17 14:10 Total Bilirubin 0.5 mg/dL (0.2-1) 12/30/17 14:10 AST 27 U/L (15-37) 12/30/17 14:10 ALT 24 U/L (13-61) 12/30/17 14:10 Alkaline Phosphatase 122 U/L (45-117) H 12/30/17 14:10 Creatine Kinase 262 IU/L (26-308) 12/30/17 14:10 Creatine Kinase Index 1.7 % (0.0-5.0) 12/30/17 14:10 CK-MB (CK-2) 4.5 ng/mL (0.5-3.6) H 12/30/17 14:10 Troponin I < 0.02 ng/ml (0.00-0.05) 12/30/17 14:10 Total Protein 8.2 g/dl (6.4-8.2) 12/30/17 14:10 Albumin 4.1 g/dl (3.4-5.0) 12/30/17 14:10 lytes wnl Trop I neg Plan for D/C w/ PCP f/u Plan discussed w/ patient who is in agreement and verbalized understanding Dispo: Home 12/30/17 16:29 *DC/Admit/Observation/Transfer Diagnosis at time of Disposition: Anxiety - Discharge Dispostion Condition at time of disposition: Stable Decision to Admit order: No - Referrals Referrals: Kit Juan [Primary Care Provider] - Olman Ham MD [Staff Physician] - - Patient Instructions Printed Discharge Instructions: DI for Anxiety -- Adult Additional Instructions: You were seen in the Emergency Room today for evaluation of anxiety. Please review the handout provided at discharge. Please follow up with your primary care provider within the next 1-3 days. Return to the Emergency Room if you develop worsening symptoms, chest pain, shortness of breath, headache, changes in vision, or any new/concerning symptoms - Post Discharge Activity
[2017-12-30 13:50] VITALS: BMI 33.9
[2017-12-30] MEDS ORDERED: ALPRAZolam 0.25 MG TABLET PO ONE (13:56)
[2017-12-30] MEDS ORDERED: ALPRAZolam 0.25 MG TABLET ONE (14:29)
--- NOTE | 2017-12-30 14:44 | EKG ---
Test Reason : Blood Pressure : / mmHG Vent. Rate : 105 BPM Atrial Rate : 105 BPM P-R Int : 154 ms QRS Dur : 076 ms QT Int : 344 ms P-R-T Axes : 043 015 090 degrees QTc Int : 454 ms SINUS TACHYCARDIA WITH OCCASIONAL PREMATURE VENTRICULAR COMPLEXES POSSIBLE LEFT ATRIAL ENLARGEMENT ANTERIOR INFARCT , AGE UNDETERMINED ABNORMAL ECG WHEN COMPARED WITH ECG OF 16-JUN-2017 09:32, PREMATURE VENTRICULAR COMPLEXES ARE NOW PRESENT Confirmed by JOSÉ LUIS DWYER, PUNEET ([id number]) on 12/30/2017 2:43:50 PM Referred By: Confirmed By:PUNEET ORDONEZ MD
[2017-12-30 14:46] LABS: BASO % 0.3 % (0-2.0); EOS % 0.2 % (0-4.5); HEMATOCRIT 44.6 % (35.4-49); HEMOGLOBIN 14.6 GM/dL (11.7-16.9); MCH 27.3 pg (25.7-33.7); MCHC 32.7 g/dl (32.0-35.9); MEAN CELL VOLUME 83.5 fl (80-96); MEAN PLT VOLUME 8.2 fl (7.5-11.1); MONO % 6.6 % (3.8-10.2); NEUT % 84.9 % (42.8-82.8); PLATELET COUNT 312 K/MM3 (134-434); RBC 5.34 M/mm3 (4.00-5.60); RDW 13.6 % (11.9-15.9); WHITE BLOOD COUNT 12.9 K/mm3 (4.0-10.0)
--- NOTE | 2017-12-30 15:17 | PDOC ---
Attending Attestation - Resident Resident Name: Xavier Ford - ED Attending Attestation I have performed the following: I have examined & evaluated the patient, The case was reviewed & discussed with the resident, I agree w/resident's findings & plan, Exceptions are as noted - HPI HPI: 12/30/17 15:17 Mr Sanchez is 52 M w/ a history of HTN, NIDDM, CAD s/p CABG x3 who presents for evaluation of anxiety s/p being evicted from his home today. 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 No SI, No HI - Physicial Exam PE: 12/30/17 15:45 GENERAL: Pt is tearful, a&o x3 LUNGS: Clear to auscultation bilaterally, no wheezes, rales or rhonchi. HEART: Regular rate and rhythm without murmurs, rubs or gallops. ABDOMEN: Normoactive bowel sounds, soft, nontender, no masses, no rebound, no guarding. NEUROLOGICAL: Normal motor function, normal sensation. - Medical Decision Making 12/30/17 15:46 Laboratory Tests 12/30/17 12/30/17 14:10 14:10 WBC 12.9 H Hgb 14.6 Hct 44.6 D Plt Count 312 BUN 22 H Creatinine 1.5 H Creatine Kinase 262 Troponin I < 0.02 EKG: Sinus rhythm, tachycardiac rate of 105bpm, axis nml, no st elevation or depressions, t waves upright
[2017-12-30 15:36] LABS: ALBUMIN 4.1 g/dl (3.4-5.0); ALK PHOS 122 U/L (45-117); ANION GAP 11 MMOL/L (8-16); BILIRUBIN,TOTAL 0.5 mg/dL (0.2-1); BLOOD UREA NITROGEN 22 mg/dL (7-18); CHLORIDE 102 mmol/L (98-107); CO2 23 mmol/L (21-32); CREATININE 1.5 mg/dL (0.55-1.3); GLUCOSE,RANDOM 193 mg/dL (74-106); POTASSIUM 4.4 mmol/L (3.5-5.1); SGOT/AST 27 U/L (15-37); SGPT/ALT 24 U/L (13-61); SODIUM 136 mmol/L (136-145); TOT PROT 8.2 g/dl (6.4-8.2)
[2017-12-30 15:50] VITALS: BP 152/78; PULSE 85; TEMP 98.2
== END 2017-12-30 15:56 | disposition home or self-care (01) ==
LOC: JER 13:27
DX: F41.9 Anxiety disorder, unspecified (principal); I25.10 Atherosclerotic heart disease of native coronary artery without angina pectoris; I10 Essential (primary) hypertension; Z95.1 Presence of aortocoronary bypass graft; E78.00 Pure hypercholesterolemia, unspecified; Z59.8 Other problems related to housing and economic circumstances
CPT/HCPCS: 36415; 71045-TC-FY; 80053; 82550; 82553; 84484; 85025; 93005; 93010; 99282-25

== ENCOUNTER 2020-01-15 18:25 | Inpatient (IN) | payer OTHER ==
[2020-01-15] MEDS ORDERED: ASPIRIN 81 MG CHEWABLE TABLETS PO ONE (18:26)
[2020-01-15 18:55] LABS: BASO % 0.3 % (0-2.0); EOS % 0.2 % (0-4.5); HEMATOCRIT 42.3 % (35.4-49); LYMPH % 3.1 % (8-40); MCHC 33.1 g/dl (32.0-35.9); MEAN CELL VOLUME 84.6 fl (80-96); MEAN PLT VOLUME 8.4 fl (7.5-11.1); MONO % 9.7 % (3.8-10.2); NEUT % 86.7 % (42.8-82.8); PLATELET COUNT 329 K/MM3 (134-434); RDW 13.6 % (11.9-15.9)
[2020-01-15] MEDS ORDERED: ASPIRIN COATED 81 MG TABLET.EC ONE (19:10)
[2020-01-15 19:23] LABS: CHLORIDE 99 mmol/L (98-107); INR 1.23 (0.83-1.09); POTASSIUM 5.1 mmol/L (3.5-5.1); PROTHROMBIN TIME (PATIENT) 14.8 SEC (9.7-13.0); SODIUM 133 mmol/L (136-145)
[2020-01-15 19:25] LABS: ACTIVATED PTT 35.5 SECONDS (25.2-36.5)
[2020-01-15 19:26] LABS: ALBUMIN 3.6 g/dl (3.4-5.0); ANION GAP 8 MMOL/L (8-16); CALCIUM 8.7 mg/dL (8.5-10.1); CO2 26 mmol/L (21-32); GLUCOSE,RANDOM 227 mg/dL (74-106); MAGNESIUM 1.8 mg/dL (1.8-2.4)
[2020-01-15 19:27] LABS: BLOOD UREA NITROGEN 16.4 mg/dL (7-18)
[2020-01-15 19:29] LABS: CREATININE 1.4 mg/dL (0.55-1.3); SGOT/AST 28 U/L (15-37); SGPT/ALT 16 U/L (13-61)
[2020-01-15 19:31] LABS: BILIRUBIN,TOTAL 1.3 mg/dL (0.2-1); TOT PROT 7.8 g/dl (6.4-8.2)
[2020-01-15 19:32] LABS: ALK PHOS 120 U/L (45-117)
[2020-01-15] MEDS ORDERED: SODIUM CHLORIDE 0.9% 500 ML INFUS.BAG IV ONE (19:48)
[2020-01-15] MEDS ORDERED: MAG HYDROX/AL HYDROX/SIMETH -MYLANTA- ORAL SUSPENSION PO ONE (19:48)
[2020-01-15] MEDS ORDERED: LIDOCAINE VISCOUS 2% ORAL/TOP 20 ML UNIT-DOSE CUP MM ONE (19:48)
[2020-01-15] MEDS ORDERED: FAMOTIDINE 20 MG/50 ML IVPB 20 MG/50 ML MG IVPB ONE ×3 (19:48→20:04)
[2020-01-15] MEDS ORDERED: LIDOCAINE VISCOUS 2% ORAL/TOP 20 ML UNIT-DOSE CUP ONE (20:00)
[2020-01-15] MEDS ORDERED: MAG HYDROX/AL HYDROX/SIMETH 30 ML UNIT-DOSE CUP ONE (20:01)
[2020-01-15 20:06] LABS: LIPASE 95 U/L (73-393)
[2020-01-15] MEDS ORDERED: CEFTRIAXONE 2,000 MG in DEXTROSE 5%-WATER - 50 ML IVPB ONE (22:21)
[2020-01-15] MEDS ORDERED: ACETAMINOPHEN 1000 MG/100 ML VIAL (NON FORMULARY) IVPB ONE (22:27)
[2020-01-15] MEDS ORDERED: ACETAMINOPHEN INJECTION 100 ML IVPB ONE (22:44)
[2020-01-15] MEDS ORDERED: CEFTRIAXONE 2 GM/100 ML BAG IVPB ONE ×2 (22:48→23:00)
[2020-01-15] MEDS ORDERED: morphine CARPU-JECT 4 MG/1 ML DISP.SYRIN IVPUSH ONE (23:38)
[2020-01-15] MEDS ORDERED: morphine SULFATE 4 MG/ML VIAL IVPUSH PRN (23:55)
[2020-01-16] MEDS: LACTATED RINGERS SOLUTION 1,000 ML/1,000 ML INFUS.BAG IV SCH ×2 (00:02→22:44)
[2020-01-16] MEDS: CARVEDILOL 12.5 MG TABLET (FP) PO SCH ×2 (00:02→09:01)
[2020-01-16] MEDS: cloNIDine HCL 0.1 MG TABLET PO SCH ×2 (00:02→09:01)
[2020-01-16] MEDS: INSULIN SLIDING SCALE (NOVOLOG) 1 VIAL SQ SCH ×4 (02:08→17:22)
[2020-01-16 06:28] LABS: BASO % 0.3 % (0-2.0); HEMATOCRIT 40.4 % (35.4-49); HEMOGLOBIN 13.3 GM/dL (11.7-16.9); LYMPH % 1.8 % (8-40); MCH 27.3 pg (25.7-33.7); MCHC 32.8 g/dl (32.0-35.9); MEAN CELL VOLUME 83.3 fl (80-96); MEAN PLT VOLUME 8.4 fl (7.5-11.1); MONO % 11.1 % (3.8-10.2); NEUT % 86.8 % (42.8-82.8); PLATELET COUNT 323 K/MM3 (134-434); RBC 4.85 M/mm3 (4.00-5.60); RDW 13.6 % (11.9-15.9); WHITE BLOOD COUNT 22.5 K/mm3 (4.0-10.0)
[2020-01-16] MEDS ORDERED: INSULIN SLIDING SCALE (NOVOLOG) 1 VIAL SQ ONE ×2 (06:42)
[2020-01-16 06:46] LABS: POTASSIUM 4.1 mmol/L (3.5-5.1)
[2020-01-16 06:53] LABS: ALBUMIN 3.2 g/dl (3.4-5.0); BLOOD UREA NITROGEN 15.8 mg/dL (7-18); CALCIUM 8.7 mg/dL (8.5-10.1)
[2020-01-16 06:56] LABS: CREATININE 1.2 mg/dL (0.55-1.3)
[2020-01-16 06:58] LABS: BILIRUBIN,TOTAL 0.9 mg/dL (0.2-1)
[2020-01-16] MEDS ORDERED: metFORMIN HCL 500 MG TABLET (FP) PO SCH (07:00)
[2020-01-16] MEDS ORDERED: glyBURIDE 2.5 MG TABLET PO SCH (07:00)
[2020-01-16] MEDS ORDERED: PANTOPRAZOLE 40 MG TABLET ONE (08:36)
[2020-01-16] MEDS ORDERED: cloNIDine HCL 0.1 MG TABLET ONE (08:37)
[2020-01-16] MEDS ORDERED: SPIRONOLACTONE 25 MG TABLET ONE (08:38)
[2020-01-16] MEDS ORDERED: LISINOPRIL 5 MG TABLET ONE (08:38)
[2020-01-16] MEDS ORDERED: PT OWN MED DRAWER 7, Y5N ONE (08:39)
[2020-01-16 08:59] LABS: ANISOCYTOSIS 0; MACROCYTOSIS 0; PLATELET ESTIMATE NORMAL
[2020-01-16] MEDS: PANTOPRAZOLE 40 MG TABLET PO SCH (09:02)
[2020-01-16] MEDS ORDERED: GABAPENTIN 100 MG CAPSULE ONE (09:05)
[2020-01-16] MEDS ORDERED: SPIRONOLACTONE 25 MG TABLET PO SCH (10:00)
[2020-01-16] MEDS ORDERED: NIFEdipine E.R 60 MG TABLET PO SCH (10:00)
[2020-01-16] MEDS ORDERED: LISINOPRIL 5 MG TABLET PO SCH ×2 (10:00)
[2020-01-16] MEDS: LISINOPRIL 10 MG TABLET PO SCH (10:01)
[2020-01-16] MEDS: GABAPENTIN 100 MG CAPSULE PO SCH (10:01)
[2020-01-16] MEDS: CARVEDILOL 25 MG TABLET (FP) PO SCH ×2 (10:01→22:43)
[2020-01-16] MEDS ORDERED: PIPERACILLIN/TAZOB 4.5 GM 4.5 GM/100 ML BAG IVPB ONE (12:32)
[2020-01-16] MEDS: PIPERACILLIN/TAZOB 4.5 GM 4.5 GM in DEXTROSE 5%-WATER 100 ML IVPB SCH ×2 (13:01→17:13)
[2020-01-16] MEDS: HEPARIN NA (PORCINE) 5,000 UNITS/ML 1ML VIAL SQ SCH ×2 (13:01→22:43)
[2020-01-16] MEDS ORDERED: SODIUM CHLORIDE 1,000 ML IV STA (14:41)
[2020-01-16 16:06] VITALS: BMI 35.4
[2020-01-16] MEDS ORDERED: PNEUMOC 13-VAL CONJ-DIP CRM/PF 0.5 ML DISP.SYRIN IM ONE (16:06)
[2020-01-16] MEDS ORDERED: DEXTROSE 5%-WATER 100 ML IVPB ONE (17:08)
[2020-01-16] MEDS ORDERED: PIPERACILLIN/TAZOBACTAM 4.5 GM VIAL IVPB ONE (17:08)
[2020-01-16] MEDS: ACETAMINOPHEN 1000 MG/100 ML VIAL (NON FORMULARY) IVPB SCH ×2 (17:14→22:45)
[2020-01-16] MEDS: PNEUMOCOCCAL 23 VACCINE 0.5 ML VIAL IM ONE (17:21)
[2020-01-16] MEDS: ATORVASTATIN CA 20 MG TABLET (FP) PO SCH (22:43)
[2020-01-17] MEDS ORDERED: PIPERACILLIN/TAZOBACTAM 4.5 GM VIAL IVPB ONE ×2 (02:02→09:38)
[2020-01-17] MEDS ORDERED: DEXTROSE 5%-WATER 100 ML IVPB ONE ×2 (02:02→09:38)
[2020-01-17] MEDS: PIPERACILLIN/TAZOB 4.5 GM 4.5 GM in DEXTROSE 5%-WATER 100 ML IVPB SCH ×2 (02:23→09:45)
[2020-01-17] MEDS: HEPARIN NA (PORCINE) 5,000 UNITS/ML 1ML VIAL SQ SCH (06:50)
[2020-01-17] MEDS: ACETAMINOPHEN 1000 MG/100 ML VIAL (NON FORMULARY) IVPB SCH (06:50)
[2020-01-17] MEDS: INSULIN SLIDING SCALE (NOVOLOG) 1 VIAL SQ SCH ×3 (06:51→16:30)
[2020-01-17 07:43] LABS: BASO % 0.2 % (0-2.0); HEMATOCRIT 38.2 % (35.4-49); HEMOGLOBIN 12.7 GM/dL (11.7-16.9); LYMPH % 2.7 % (8-40); MCH 28.1 pg (25.7-33.7); MCHC 33.2 g/dl (32.0-35.9); MEAN CELL VOLUME 84.6 fl (80-96); MEAN PLT VOLUME 8.8 fl (7.5-11.1); MONO % 9.1 % (3.8-10.2); PLATELET COUNT 252 K/MM3 (134-434); RBC 4.51 M/mm3 (4.00-5.60); RDW 13.8 % (11.9-15.9); WHITE BLOOD COUNT 19.1 K/mm3 (4.0-10.0)
[2020-01-17 08:20] LABS: ALBUMIN 2.6 g/dl (3.4-5.0)
[2020-01-17 08:21] LABS: CALCIUM 7.6 mg/dL (8.5-10.1)
[2020-01-17 08:23] LABS: CREATININE 2.3 mg/dL (0.55-1.3)
[2020-01-17 08:24] LABS: BILIRUBIN,TOTAL 1.1 mg/dL (0.2-1)
[2020-01-17] MEDS: GABAPENTIN 100 MG CAPSULE PO SCH (09:44)
[2020-01-17] MEDS: CARVEDILOL 25 MG TABLET (FP) PO SCH ×2 (09:44→21:18)
[2020-01-17] MEDS: CLOPIDOGREL BISULFATE 75 MG TABLET (FP) PO SCH (09:44)
[2020-01-17] MEDS: ASPIRIN COATED 81 MG TABLET.EC PO SCH (09:44)
[2020-01-17] MEDS: LISINOPRIL 10 MG TABLET PO SCH (09:44)
[2020-01-17] MEDS: PANTOPRAZOLE 40 MG TABLET PO SCH (09:44)
[2020-01-17] MEDS: LACTATED RINGERS SOLUTION 1,000 ML/1,000 ML INFUS.BAG IV SCH ×2 (09:44→21:18)
[2020-01-17] MEDS ORDERED: SODIUM CHLORIDE 1,000 ML IV STA (10:33)
[2020-01-17] MEDS: PNEUMOCOCCAL 23 VACCINE 0.5 ML VIAL IM ONE (15:05)
[2020-01-17] MEDS ORDERED: PIPERACILLIN/TAZOBACTAM 3.375 GM VIAL IVPB ONE (17:13)
[2020-01-17] MEDS ORDERED: DEXTROSE 5%-WATER - 50 ML IVPB ONE (17:14)
[2020-01-17] MEDS: PIPERACILLIN/TAZOB 3.375 GM 3.375 GM in DEXTROSE 5%-WATER - 50 ML IVPB SCH (17:18)
[2020-01-17] MEDS: ATORVASTATIN CA 20 MG TABLET (FP) PO SCH (21:18)
[2020-01-18] MEDS ORDERED: DEXTROSE 5%-WATER - 50 ML IVPB ONE ×3 (01:21→16:52)
[2020-01-18] MEDS ORDERED: PIPERACILLIN/TAZOBACTAM 3.375 GM VIAL IVPB ONE ×3 (01:21→16:52)
[2020-01-18] MEDS: PIPERACILLIN/TAZOB 3.375 GM 3.375 GM in DEXTROSE 5%-WATER - 50 ML IVPB SCH ×3 (01:33→17:15)
[2020-01-18] MEDS: LACTATED RINGERS SOLUTION 1,000 ML/1,000 ML INFUS.BAG IV SCH ×3 (06:24→13:24)
[2020-01-18] MEDS: INSULIN SLIDING SCALE (NOVOLOG) 1 VIAL SQ SCH ×3 (06:27→16:24)
[2020-01-18 08:23] LABS: BASO % 0.1 % (0-2.0); EOS % 0.7 % (0-4.5); HEMATOCRIT 35.8 % (35.4-49); HEMOGLOBIN 11.6 GM/dL (11.7-16.9); LYMPH % 5.8 % (8-40); MCH 27.2 pg (25.7-33.7); MCHC 32.5 g/dl (32.0-35.9); MEAN CELL VOLUME 83.8 fl (80-96); MEAN PLT VOLUME 8.4 fl (7.5-11.1); MONO % 8.6 % (3.8-10.2); NEUT % 84.8 % (42.8-82.8); PLATELET COUNT 299 K/MM3 (134-434); RBC 4.28 M/mm3 (4.00-5.60); RDW 13.9 % (11.9-15.9); WHITE BLOOD COUNT 14.2 K/mm3 (4.0-10.0)
[2020-01-18 09:16] LABS: POTASSIUM 3.6 mmol/L (3.5-5.1)
[2020-01-18] MEDS ORDERED: PT OWN MED DRAWER 7, Y5N ONE (09:29)
[2020-01-18] MEDS: ASPIRIN COATED 81 MG TABLET.EC PO SCH (09:37)
[2020-01-18] MEDS: GABAPENTIN 100 MG CAPSULE PO SCH (09:37)
[2020-01-18] MEDS: LISINOPRIL 10 MG TABLET PO SCH (09:37)
[2020-01-18] MEDS: PANTOPRAZOLE 40 MG TABLET PO SCH (09:38)
[2020-01-18] MEDS: CARVEDILOL 25 MG TABLET (FP) PO SCH ×2 (09:38→22:23)
[2020-01-18] MEDS: CLOPIDOGREL BISULFATE 75 MG TABLET (FP) PO SCH (09:38)
[2020-01-18 09:49] LABS: TOT PROT 5.8 g/dl (6.4-8.2)
[2020-01-18 10:05] LABS: CALCIUM 7.2 mg/dL (8.5-10.1)
[2020-01-18 10:06] LABS: ALBUMIN 2.4 g/dl (3.4-5.0); BLOOD UREA NITROGEN 48.5 mg/dL (7-18)
[2020-01-18 10:09] LABS: CREATININE 2.2 mg/dL (0.55-1.3)
[2020-01-18 10:10] LABS: BILIRUBIN,TOTAL 0.4 mg/dL (0.2-1)
[2020-01-18 21:35] LABS: EPI CELLS 4 /uL (0-25.1); HYALINE CASTS 1 /uL (0-3.1); URINE APPEARANCE CLEAR; URINE BACTERIA 13 /uL (0-1359); URINE BILIRUBIN NEGATIVE (NEGATIVE); URINE COLOR YELLOW; URINE GLUCOSE (UA) NEGATIVE (NEGATIVE); URINE KETONE NEGATIVE (NEGATIVE); URINE LEUK ESTERASE NEGATIVE (NEGATIVE); URINE NITRITE NEGATIVE (NEGATIVE); URINE PROTEIN TRACE (NEGATIVE); URINE RBC 143 /uL (0-23.9); URINE UROBILINOGEN 0.2 mg/dL (0.2-1.0); URINE WBC 5 /uL (0-25.8)
[2020-01-18] MEDS: ATORVASTATIN CA 20 MG TABLET (FP) PO SCH (22:23)
[2020-01-19] MEDS ORDERED: DEXTROSE 5%-WATER - 50 ML IVPB ONE ×3 (02:55→17:11)
[2020-01-19] MEDS ORDERED: PIPERACILLIN/TAZOBACTAM 3.375 GM VIAL IVPB ONE ×3 (02:55→17:11)
[2020-01-19] MEDS: PIPERACILLIN/TAZOB 3.375 GM 3.375 GM in DEXTROSE 5%-WATER - 50 ML IVPB SCH ×3 (02:56→17:14)
[2020-01-19] MEDS: INSULIN SLIDING SCALE (NOVOLOG) 1 VIAL SQ SCH ×3 (06:09→16:52)
[2020-01-19 07:49] LABS: BASO % 0.3 % (0-2.0); EOS % 2.1 % (0-4.5); HEMATOCRIT 34.9 % (35.4-49); HEMOGLOBIN 11.4 GM/dL (11.7-16.9); LYMPH % 8.7 % (8-40); MCH 27.1 pg (25.7-33.7); MCHC 32.7 g/dl (32.0-35.9); MEAN CELL VOLUME 82.9 fl (80-96); MEAN PLT VOLUME 8.2 fl (7.5-11.1); MONO % 8.4 % (3.8-10.2); NEUT % 80.5 % (42.8-82.8); PLATELET COUNT 329 K/MM3 (134-434); RBC 4.21 M/mm3 (4.00-5.60); RDW 13.7 % (11.9-15.9); WHITE BLOOD COUNT 11.1 K/mm3 (4.0-10.0)
[2020-01-19 08:02] LABS: POTASSIUM 3.7 mmol/L (3.5-5.1)
[2020-01-19 08:06] LABS: ALBUMIN 2.2 g/dl (3.4-5.0); BLOOD UREA NITROGEN 36.3 mg/dL (7-18); CALCIUM 7.8 mg/dL (8.5-10.1)
[2020-01-19 08:09] LABS: CREATININE 1.7 mg/dL (0.55-1.3)
[2020-01-19 08:11] LABS: BILIRUBIN,TOTAL 0.4 mg/dL (0.2-1); TOT PROT 5.7 g/dl (6.4-8.2)
[2020-01-19] MEDS ORDERED: PT OWN MED DRAWER 7, Y5N ONE (09:38)
[2020-01-19] MEDS: LACTATED RINGERS SOLUTION 1,000 ML/1,000 ML INFUS.BAG IV SCH (09:44)
[2020-01-19] MEDS: CLOPIDOGREL BISULFATE 75 MG TABLET (FP) PO SCH (09:46)
[2020-01-19] MEDS: CARVEDILOL 25 MG TABLET (FP) PO SCH ×2 (09:46→21:40)
[2020-01-19] MEDS: ASPIRIN COATED 81 MG TABLET.EC PO SCH (09:46)
[2020-01-19] MEDS: GABAPENTIN 100 MG CAPSULE PO SCH (09:46)
[2020-01-19] MEDS: PANTOPRAZOLE 40 MG TABLET PO SCH (09:47)
[2020-01-19] MEDS ORDERED: amLODIPine BESYLATE 5 MG TABLET (FP) PO SCH (10:00)
[2020-01-19] MEDS ORDERED: amLODIPine BESYLATE 5 MG TABLET (FP) PO ONE (14:12)
[2020-01-19] MEDS ORDERED: amLODIPine BESYLATE 10 MG TABLET (FP) PO SCH (14:12)
[2020-01-19] MEDS ORDERED: LACTATED RINGERS SOLUTION 1,000 ML/1,000 ML INFUS.BAG IV SCH (14:12)
[2020-01-19] MEDS: ATORVASTATIN CA 20 MG TABLET (FP) PO SCH (21:40)
[2020-01-20] MEDS ORDERED: DEXTROSE 5%-WATER - 50 ML IVPB ONE (01:48)
[2020-01-20] MEDS ORDERED: PIPERACILLIN/TAZOBACTAM 3.375 GM VIAL IVPB ONE (01:48)
[2020-01-20] MEDS: PIPERACILLIN/TAZOB 3.375 GM 3.375 GM in DEXTROSE 5%-WATER - 50 ML IVPB SCH (01:51)
[2020-01-20] MEDS ORDERED: RAMIPRIL 5 MG CAPSULE PO SCH ×3 (06:30→10:00)
[2020-01-20] MEDS: INSULIN SLIDING SCALE (NOVOLOG) 1 VIAL SQ SCH ×2 (06:33→11:18)
[2020-01-20] MEDS ORDERED: AMOX TR/POT CLAV 875MG/125MG TABLETS (FP) PO SCH ×2 (08:00→17:30)
[2020-01-20 08:28] LABS: BASO % 0.5 % (0-2.0); EOS % 2.9 % (0-4.5); HEMOGLOBIN 13.3 GM/dL (11.7-16.9); LYMPH % 10.8 % (8-40); MCH 28.1 pg (25.7-33.7); MCHC 33.4 g/dl (32.0-35.9); MEAN CELL VOLUME 84.1 fl (80-96); MEAN PLT VOLUME 8.1 fl (7.5-11.1); MONO % 9.5 % (3.8-10.2); NEUT % 76.3 % (42.8-82.8); PLATELET COUNT 370 K/MM3 (134-434); RBC 4.76 M/mm3 (4.00-5.60); RDW 13.8 % (11.9-15.9); WHITE BLOOD COUNT 11.5 K/mm3 (4.0-10.0)
[2020-01-20 08:43] LABS: POTASSIUM 3.3 mmol/L (3.5-5.1)
[2020-01-20 08:46] LABS: ALBUMIN 2.6 g/dl (3.4-5.0); BLOOD UREA NITROGEN 25.9 mg/dL (7-18); CALCIUM 8.5 mg/dL (8.5-10.1)
[2020-01-20 08:50] LABS: CREATININE 1.5 mg/dL (0.55-1.3)
[2020-01-20 08:52] LABS: BILIRUBIN,TOTAL 0.6 mg/dL (0.2-1); TOT PROT 6.6 g/dl (6.4-8.2)
[2020-01-20] MEDS: PANTOPRAZOLE 40 MG TABLET PO SCH (09:22)
[2020-01-20] MEDS: ASPIRIN COATED 81 MG TABLET.EC PO SCH (09:22)
[2020-01-20] MEDS: CARVEDILOL 25 MG TABLET (FP) PO SCH (09:22)
[2020-01-20] MEDS: GABAPENTIN 100 MG CAPSULE PO SCH (09:22)
[2020-01-20] MEDS: CLOPIDOGREL BISULFATE 75 MG TABLET (FP) PO SCH (09:22)
[2020-01-20] MEDS ORDERED: POTASSIUM CHLORIDE TABS 20 MEQ TABLET.ER (FP) PO ONE (09:57)
[2020-01-20] MEDS ORDERED: amLODIPine BESYLATE 10 MG TABLET (FP) PO SCH (10:00)
[2020-01-20] MEDS ORDERED: INSULIN (NOVOLOG) ASPART 100 UNITS/ML 10ML VIAL ONE (10:27)
[2020-01-20 11:29] VITALS: TEMP 98.2
[2020-01-20 14:13] VITALS: BP 165/88; PULSE 75
== END 2020-01-20 14:58 | disposition home health service (06) | DRG 261 ==
LOC: JER 18:25 → JERBED 22:32 → J8W 01-16 14:45
PROVIDERS: ADMIT Internal Medicine; ATTEND Internal Medicine
PROC: 0F9430Z Drainage of Gallbladder with Drainage Device, Percutaneous Approach (ICD-10-PCS; principal; 2020-01-16)
PROC: BF12YZZ Fluoroscopy of Gallbladder using Other Contrast (ICD-10-PCS; 2020-01-16)
DX: K80.00 Calculus of gallbladder with acute cholecystitis without obstruction (principal); I13.0 Hypertensive heart and chronic kidney disease with heart failure and stage 1 through stage 4 chronic kidney disease, or unspecified chronic kidney disease; E78.00 Pure hypercholesterolemia, unspecified; E66.9 Obesity, unspecified; Z68.35 Body mass index [BMI] 35.0-35.9, adult; M54.5 Low back pain; F41.9 Anxiety disorder, unspecified; R10.13 Epigastric pain; I25.2 Old myocardial infarction; E11.22 Type 2 diabetes mellitus with diabetic chronic kidney disease; N18.9 Chronic kidney disease, unspecified; I25.810 Atherosclerosis of coronary artery bypass graft(s) without angina pectoris; N17.9 Acute kidney failure, unspecified; I25.5 Ischemic cardiomyopathy; I34.0 Nonrheumatic mitral (valve) insufficiency; E86.0 Dehydration; I50.20 Unspecified systolic (congestive) heart failure; D72.829 Elevated white blood cell count, unspecified; Z95.1 Presence of aortocoronary bypass graft
CPT/HCPCS: 36415; 47490; 71046-TC-FY; 76705-TC; 76775-TC; 76856-TC; 80053; 81003; 82436; 82550; 82553; 82565; 82962; 83690; 83735; 84133; 84300; 84484; 85025; 85610; 85730; 86850; 86900; 86901; 87040; 87070; 87075; 87205; 90732; 93005; 93010; 99285-25; C9803; G0009; J0131; J0735; J1644; U0003

== ENCOUNTER 2020-03-13 12:10 | Day surgery (SDC) | payer OTHER ==
[2020-03-12 13:14] VITALS: BMI 33.9
[~2020-03-13 12:10] MED LIST: BUPIVACAINE HCL/PF 0.5% (5MG/ML) 10 ML VIAL IJ ONE; ceFAZolin 2 GRAM PREMIX BAG IVPB ONE
[2020-03-13] MEDS ORDERED: fentaNYL CITRATE 250 MCG/5 ML VIAL ONE ×2 (12:50→14:18)
[2020-03-13] MEDS ORDERED: GLYCOPYRROLATE 0.2 MG/1 ML VIAL ONE ×2 (12:50→15:34)
[2020-03-13] MEDS ORDERED: ROCURONIUM BROMIDE 50 MG/5 ML SYRINGE ONE ×2 (12:51→14:14)
[2020-03-13] MEDS ORDERED: MIDAZOLAM HCL 2 MG/2 ML SINGLE DOSE VIAL ONE (12:51)
[2020-03-13] MEDS ORDERED: PROPOFOL 20 ML ONE ×3 (12:51→13:48)
[2020-03-13] MEDS ORDERED: NEOSTIGMINE METHYLSULFATE 0.5 MG/1 ML - 10 ML MDV ONE (12:51)
[2020-03-13] MEDS ORDERED: BUPIVACAINE HCL 50 ML ONE (13:05)
[2020-03-13] MEDS ORDERED: ceFAZolin SODIUM 1 GM VIAL ONE (13:55)
[2020-03-13] MEDS ORDERED: ceFAZolin 2 GRAM PREMIX BAG IVPB ONE (14:00)
[2020-03-13] MEDS ORDERED: ePHEDrine SULFATE 50 MG/1 ML AMPULE ONE (14:07)
[2020-03-13] MEDS ORDERED: ONDANSETRON 4 MG/2 ML VIAL ONE (14:09)
[2020-03-13] MEDS ORDERED: DEXAMETHASONE SOD PHOSPHATE 4 MG/1 ML VIAL ONE (14:09)
[2020-03-13] MEDS ORDERED: PHENYLEPHRINE HCL 10 MG/1 ML SINGLE DOSE VIAL ONE (14:09)
[2020-03-13] MEDS ORDERED: BUPIVACAINE HCL/PF 0.5% (5MG/ML) 10 ML VIAL IJ ONE (14:15)
[2020-03-13] MEDS ORDERED: HYDROmorphone HCL/PF 1 MG/ML VIAL ONE (14:17)
[2020-03-13] MEDS ORDERED: BUPIVACAINE LIPOSOME/PF (EXPAREL) 266 MG/20 ML VIAL ONE (15:28)
[2020-03-13] MEDS ORDERED: BUPIVACAINE LIPOSOME/PF (EXPAREL) 266 MG/20 ML VIAL NR ONE ×2 (15:39)
[2020-03-13] MEDS ORDERED: ONDANSETRON 4 MG/2 ML VIAL IVPUSH PRN ×2 (16:10→18:25)
[2020-03-13] MEDS ORDERED: PROMETHAZINE HCL 25 MG/1 ML VIAL IVPUSH PRN ×2 (16:10→18:25)
[2020-03-13] MEDS ORDERED: ACETAMINOPHEN 1000 MG/100 ML VIAL (NON FORMULARY) IVPB ONE (16:11)
[2020-03-13] MEDS ORDERED: LACTATED RINGERS SOLUTION 1,000 ML IV SCH (16:15)
[2020-03-13] MEDS ORDERED: oxyCODONE HCL 5 MG TABLET PO PRN (16:16)
[2020-03-13] MEDS ORDERED: IBUPROFEN 600 MG TABLET (FP) PO PRN (16:16)
[2020-03-13] MEDS ORDERED: NITROGLYCERIN SUBLINGUAL 1/200 0.3 MG BTL SL PRN (16:17)
[2020-03-13] MEDS ORDERED: SODIUM CHLORIDE 1,000 ML IV SCH (16:30)
[2020-03-13] MEDS: metFORMIN HCL 500 MG TABLET (FP) PO SCH (18:54)
[2020-03-13] MEDS ORDERED: ATORVASTATIN CA 80 MG TABLET (FP) PO SCH (22:00)
[2020-03-13] MEDS ORDERED: ACETAMINOPHEN 325 MG TABLET (FP) PO PRN (22:00)
[2020-03-13] MEDS: CARVEDILOL 25 MG TABLET (FP) PO SCH (22:05)
[2020-03-14] MEDS: metFORMIN HCL 500 MG TABLET (FP) PO SCH (06:16)
[2020-03-14] MEDS ORDERED: glyBURIDE 2.5 MG TABLET PO SCH (07:00)
[2020-03-14 07:37] LABS: HEMATOCRIT 38.3 % (35.4-49); MCH 28.4 pg (25.7-33.7); MEAN CELL VOLUME 83.4 fl (80-96); MEAN PLT VOLUME 8.8 fl (7.5-11.1); PLATELET COUNT 289 K/MM3 (134-434); RBC 4.59 M/mm3 (4.00-5.60); RDW 13.4 % (11.9-15.9); WHITE BLOOD COUNT 17.2 K/mm3 (4.0-10.8)
[2020-03-14 07:52] LABS: ALBUMIN 3.6 g/dl (3.4-5.0); BILIRUBIN,TOTAL 0.8 mg/dl (0.2-1); CALCIUM 8.6 mg/dl (8.5-10); CREATININE 1.5 mg/dl (0.55-1.3); POTASSIUM 4.4 mmol/L (3.5-5.1); TOT PROT 6.8 g/dl (6.4-8.2)
[2020-03-14] MEDS ORDERED: ASPIRIN COATED 81 MG TABLET.EC PO SCH (10:00)
[2020-03-14] MEDS ORDERED: LISINOPRIL 10 MG TABLET PO SCH (10:00)
[2020-03-14] MEDS ORDERED: CLOPIDOGREL BISULFATE 75 MG TABLET (FP) PO SCH (10:00)
[2020-03-14] MEDS: CARVEDILOL 25 MG TABLET (FP) PO SCH (10:07)
[2020-03-14 14:15] VITALS: BP 138/66; PULSE 83; TEMP 99
== END 2020-03-14 15:01 | disposition home or self-care (01) ==
LOC: FASU 12:10 → FM/S 18:26 → FASU 03-14 15:01
PROVIDERS: ATTEND Surgery
PROC: 0FT44ZZ Resection of Gallbladder, Percutaneous Endoscopic Approach (ICD-10-PCS; principal; 2020-03-13 13:30)
DX: K81.2 Acute cholecystitis with chronic cholecystitis (principal)
CPT/HCPCS: 36415; 80053; 82962; 85027; 88304-TC; 94760; J0131